=== PATIENT | female | born 1985 | race Caucasian/White ===

== ENCOUNTER 2020-12-12 08:18 | Emergency (ER) | payer OTHER ==
[~2020-12-12 08:18] MED LIST: BACTRIM DS TAB1 EACH PO; MOTRIN600 MG PO; ROBAXIN500 MG PO; SKELAXIN800 MG PO; VOLTAREN **OUT75 MG PO
[2020-12-12] MEDS ORDERED: CLEOCIN300 MG PO (09:00)
[2020-12-12] MEDS ORDERED: NAPROXEN500 MG PO (09:00)
[2020-12-12] MEDS ORDERED: NORCO 5-325 TA1 EACH PO (09:00)
== END 2020-12-12 09:32 | disposition home or self-care (01) ==
LOC: FER 08:18
DX: K04.7 Periapical abscess without sinus (principal); K02.9 Dental caries, unspecified; F17.210 Nicotine dependence, cigarettes, uncomplicated
CPT/HCPCS: 99283

== ENCOUNTER 2020-12-28 11:58 | Emergency (ER) | payer OTHER ==
[~2020-12-28 11:58] MED LIST changes: +CLEOCIN300 MG PO; +NAPROXEN500 MG PO; +NORCO 5-325 TA1 EACH PO
[2020-12-28] MEDS ORDERED: CLEOCIN300 MG PO (12:36)
== END 2020-12-28 12:46 | disposition home or self-care (01) ==
LOC: FER 11:58
DX: K08.89 Other specified disorders of teeth and supporting structures (principal); F17.200 Nicotine dependence, unspecified, uncomplicated
CPT/HCPCS: 99282

== ENCOUNTER 2021-04-26 07:39 | Emergency (ER) | payer OTHER ==
[2021-04-26] MEDS ORDERED: NAPROXEN500 MG PO (09:02)
== END 2021-04-26 09:46 | disposition home or self-care (01) ==
LOC: FER 07:39
DX: S39.012A Strain of muscle, fascia and tendon of lower back, initial encounter (principal); S50.02XA Contusion of left elbow, initial encounter; F17.210 Nicotine dependence, cigarettes, uncomplicated; Z88.0 Allergy status to penicillin; W10.9XXA Fall (on) (from) unspecified stairs and steps, initial encounter; Y92.009 Unspecified place in unspecified non-institutional (private) residence as the place of occurrence of the external cause
CPT/HCPCS: 72100; 73080